=== PATIENT | female | born 1960 | race Caucasian/White ===

== ENCOUNTER → 2019-07-29 16:32 | Outpatient (BNVA) | payer OTHER, SELFPAY | PROVIDERS: Family Provider Nurse Practitioner Family; PCP Nurse Practitioner; Visit Provider Nurse Practitioner Family | DX: R39.89 Other symptoms and signs involving the genitourinary system (principal); K57.90 Diverticulosis of intestine, part unspecified, without perforation or abscess without bleeding; N39.0 Urinary tract infection, site not specified; K57.92 Diverticulitis of intestine, part unspecified, without perforation or abscess without bleeding; B37.3 Candidiasis of vulva and vagina | CPT/HCPCS: 81001 ==

== ENCOUNTER → 2019-11-07 11:27 | Outpatient (BNVA) | payer OTHER, SELFPAY | PROVIDERS: Family Provider Nurse Practitioner Family; PCP Nurse Practitioner; Visit Provider Nurse Practitioner Family | DX: K57.92 Diverticulitis of intestine, part unspecified, without perforation or abscess without bleeding (principal); E89.2 Postprocedural hypoparathyroidism; E55.9 Vitamin D deficiency, unspecified; Z79.899 Other long term (current) drug therapy; R10.2 Pelvic and perineal pain; B37.3 Candidiasis of vulva and vagina | CPT/HCPCS: 81000 ==

== ENCOUNTER 2024-07-16 10:04 | Outpatient (CLI) | payer MEDICAID, SELFPAY ==
--- NOTE | 2024-07-16 10:17 | MM_ITS ---
WS: [id number] DIAGNOSTIC BILATERAL DIGITAL BREAST TOMOSYNTHESIS MAMMOGRAPHY WITH CAD LEFT breast ultrasound, limited. HISTORY: MASS OVERLAPPING MULTIPLE QUADRANTS OF L BREAST COMPARISON: 08/23/2018 TECHNIQUE: Bilateral craniocaudad, mediolateral oblique, and mediolateral views are submitted with tomosynthesis and SM. LEFT CC and MLO spot compressions. Computer aided detection utilized. Breast composition: The breasts are heterogeneously dense, which may obscure small masses. Incompletely visualized high density mass in the posterior LEFT breast is just slightly below the nipple line near 4:00. Mass measures 2.1 x 2.3 x 2.0 cm. No additional masses. No suspicious grouping of calcifications. LEFT breast ultrasound, limited. Hypoechoic mass with lobulated margins at 4:00, 3 cm from the nipple. Mass measures 2.2 x 2.0 x 2.2 cm. Mild peripheral increased vascularity. MM/MM diag BI tomosynthesis [id number] IMPRESSION: BI-RADS: 4 - Suspicious Finding - Biopsy Should Be Considered FOLLOW UP: Biopsy Recommended Ultrasound guided biopsy LEFT breast mass at 4:00. Notified MILLA Mccollum at 07/16/2024 11:44 AM.
--- NOTE | 2024-07-16 10:55 | US_ITS ---
WS: [id number] DIAGNOSTIC BILATERAL DIGITAL BREAST TOMOSYNTHESIS MAMMOGRAPHY WITH CAD LEFT breast ultrasound, limited. HISTORY: MASS OVERLAPPING MULTIPLE QUADRANTS OF L BREAST COMPARISON: 08/23/2018 TECHNIQUE: Bilateral craniocaudad, mediolateral oblique, and mediolateral views are submitted with tomosynthesis and SM. LEFT CC and MLO spot compressions. Computer aided detection utilized. Breast composition: The breasts are heterogeneously dense, which may obscure small masses. Incompletely visualized high density mass in the posterior LEFT breast is just slightly below the nipple line near 4:00. Mass measures 2.1 x 2.3 x 2.0 cm. No additional masses. No suspicious grouping of calcifications. LEFT breast ultrasound, limited. Hypoechoic mass with lobulated margins at 4:00, 3 cm from the nipple. Mass measures 2.2 x 2.0 x 2.2 cm. Mild peripheral increased vascularity. US/US breast LT limited* [id number] IMPRESSION: BI-RADS: 4 - Suspicious Finding - Biopsy Should Be Considered FOLLOW UP: Biopsy Recommended Ultrasound guided biopsy LEFT breast mass at 4:00. Notified MILLA Mccollum at 07/16/2024 11:44 AM.
== END 2024-07-16 10:05 | disposition home or self-care (01) ==
LOC: RAD 10:11
PROVIDERS: Family Provider Nurse Practitioner Family; PCP Nurse Practitioner Family; Visit Provider Nurse Practitioner Family
DX: N63.23 Unspecified lump in the left breast, lower outer quadrant (principal); R92.333 Mammographic heterogeneous density, bilateral breasts; R93.89 Abnormal findings on diagnostic imaging of other specified body structures
CPT/HCPCS: 76642; 77062; G0279